=== PATIENT | female | born 1985 | race American Indian/Alaskan Native ===

== ENCOUNTER 2016-08-11 12:31 | Emergency (ER) | payer MEDICAID, OTHER ==
[2016-08-11 13:09] VITALS: BP 128/89
[2016-08-11] MEDS ORDERED: Divalproex Sodium Delayed-Release 250 MG Tab.CR PO ONE (14:31)
--- NOTE | 2016-08-11 14:34 | EDM.PDOC ---
ED HPI NEURO - General Chief Complaint: Neurological Problem Stated Complaint: SEIZURE Time Seen by Provider: 08/11/16 12:35 Source: Reports: Patient History Limitations: Reports: No limitations - History of Present Illness INITIAL COMMENTS - FREE TEXT/NARRATIVE: pt was brought by ambulance because she was in court and had a seizure. She has had a past history of seizure activity but has not had seizures for 3-4 years.pt was placed on wellbruiten 2 weeks ago which could increase her chances of seizure activity. Timing/Duration: Reports: Hour(s): Location (Neuro Complaint): Reports: generalized Associated symptoms: Reports: seizure - Related Data Allergies/ADRs: Allergies Allergy/AdvReac Type Severity Reaction Status Date / Time No Known Allergies Allergy Verified 08/11/16 13:09 Home Meds: Home Meds buPROPion [Wellbutrin] 75 mg PO DAILY 08/11/16 [History] busPIRone [Buspar] 15 mg PO TID 08/11/16 [History] diphenhydrAMINE [Benadryl] 50 mg PO QID 08/11/16 [History] Past Medical History Genitourinary History: Reports: UTI, recurrent [employer] History: Reports: Psychiatric History: Reports: Addiction, Anxiety, Depression Dermatologic History: Reports: Eczema - Past Surgical History Female Surgical History: Reports: section Social & Family History - Tobacco Use Smoking Status *Q: Former Smoker - Caffeine Use Caffeine Use: Reports: None - Recreational Drug Use Recreational Drug Type: Reports: Methamphetamine Recreational Drug Use Frequency: Daily ED ROS GENERAL - Review of Systems Review Of Systems: See Below Constitutional: Reports: no symptoms HEENT: Reports: No symptoms Respiratory: Reports: no symptoms Cardiovascular: Reports: No symptoms Endocrine: Reports: no symptoms GI/Abdominal: Reports: No symptoms : Reports: no symptoms Musculoskeletal: Reports: no symptoms Skin: Reports: no symptoms Neurological: Reports: other (Pt was at court today and she had a short generalized seizure. ) ED EXAM, NEURO - Physical Exam Exam: See Below Text/Narrative:: Pt arrived with a history of a seizure in court today. She has a past history but has not had seizure activity for 3-4 years. She is off of her seizure meds. She was recently placed on wellbruiten. Exam Limited By: No limitations General Appearance: alert, anxious Ears: normal TMs Nose: normal inspection Throat/Mouth: Normal inspection Head Exam: atraumatic Neck: normal inspection Respiratory/Chest: no respiratory distress Cardiovascular: regular rate, rhythm GI/Abdominal: soft, non tender Rectal (Female) Exam: Deferred Neurological: alert, oriented x 3 Back Exam: normal inspection Extremities: normal inspection Psychiatric: normal affect Course - Vital Signs Last Recorded V/S: Last Vital Signs Temp 36.5 C 08/11/16 13:03 Pulse 90 08/11/16 13:03 Resp 16 08/11/16 13:03 BP 128/89 08/11/16 13:03 Pulse Ox 98 08/11/16 13:03 - Orders/Labs/Meds Orders: Active Orders 24 hr Category Date Time Status CULTURE URINE [RM] Stat Lab 08/11/16 14:37 Received Labs: Laboratory Tests 08/11/16 08/11/16 08/11/16 Range/Units 13:28 13:28 13:52 WBC 8.0 (4.5-11.0) K/uL RBC 4.07 (3.30-5.50) M/uL Hgb 12.3 (12.0-15.0) g/dL Hct 37.0 (36.0-48.0) % MCV 91 (80-98) fL MCH 30 (27-31) pg MCHC 33 (32-36) % Plt Count 198 (150-400) K/uL Neut % (Auto) 80 H (36-66) % Lymph % (Auto) 13 L (24-44) % Johnston % (Auto) 5 (2-6) % Eos % (Auto) 2 (2-4) % Baso % (Auto) 0 (0-1) % Sodium 142 (140-148) mmol/L Potassium 4.2 (3.6-5.2) mmol/L Chloride 107 (100-108) mmol/L Carbon Dioxide 28 (21-32) mmol/L Anion Gap 6.7 (5.0-14.0) mmol/L BUN 9 (7-18) mg/dL Creatinine 0.7 (0.6-1.0) mg/dL Est Cr Clr Drug Dosing 115.31 mL/min Estimated GFR (MDRD) > 60 (>60) Glucose 105 (74-106) mg/dL Calcium 8.3 L (8.5-10.1) mg/dL Total Bilirubin 0.2 (0.2-1.0) mg/dL AST 24 (15-37) U/L ALT 28 (12-78) U/L Alkaline Phosphatase 67 (46-116) U/L Total Protein 7.4 (6.4-8.2) g/dL Albumin 3.9 (3.4-5.0) g/dL Globulin 3.5 (2.3-3.5) g/dL Albumin/Globulin Ratio 1.1 L (1.2-2.2) Urine Color Yellow Urine Appearance Slightly cloudy Urine pH 8.0 (4.5-8.0) Ur Specific Mcclure 1.015 (1.008-1.030) Urine Protein Negative (NEGATIVE) mg/dL Urine Glucose (UA) Normal (NEGATIVE) mg/dL Urine Ketones Negative (NEGATIVE) mg/dL Urine Occult Blood Negative (NEGATIVE) Urine Nitrite Negative (NEGATIVE) Urine Bilirubin Negative (NEGATIVE) Urine Urobilinogen Normal (NORMAL) mg/dL Ur Leukocyte Esterase Large (NEGATIVE) Urine RBC 0-5 (0-5) Urine WBC 20-30 H (0-5) Ur Epithelial Cells Few Amorphous Sediment Not seen Urine Bacteria Moderate Urine Mucus Not seen Meds: Medications Discontinued Medications Generic Name Dose Route Start Last Admin Trade Name Freq PRN Reason Stop Dose Admin Divalproex Sodium 250 mg 08/11/16 14:31 08/11/16 14:38 Divalproex Sodium PO 08/11/16 14:32 250 mg ONETIME ONE Administration - Re-Assessments/Exams Free Text/Narrative Re-Assessment/Exam: 08/11/16 15:33 Pt was given depakote 250mg po. She has not had any further seizure activity. She will be taken off the [employer] Departure - Departure Time of Disposition: 15:35 Disposition: Home, Self-Care 01 Condition: fair Clinical Impression: Observed seizure-like activity Forms: ED Department Discharge Care Plan Goals: stop wellbruiten, depakote 250 bid, cont other meds. If pt has increased depression off the [place] she will need to be revaluated. - My Orders Last 24 Hours: My Active Orders 08/11/16 14:37 CULTURE URINE [RM] Stat - Assessment/Plan Last 24 Hours: My Active Orders 08/11/16 14:37 CULTURE URINE [RM] Stat
== END 2016-08-11 15:42 | disposition home or self-care (01) ==
LOC: JP.ED 12:31
DX: R56.9 Unspecified convulsions (principal); Z79.899 Other long term (current) drug therapy
CPT/HCPCS: 36415; 80053; 81001; 85025; 87086; 99285; A9270; 99283